=== PATIENT | male | born 1965 ===

== ENCOUNTER 2019-08-06 08:36 | Emergency (ER) | payer OTHER ==
[~2019-08-06] VITALS: Ht 175.3 cm; Wt 81.6 kg
[~2019-08-06 08:36] MED LIST: PERCOCET 5/3251 TAB PO
== END 2019-08-06 15:22 | disposition home or self-care (01) ==
LOC: ER 08:36
DX: K52.9 Noninfective gastroenteritis and colitis, unspecified (principal)